=== PATIENT | male | born 1980 | race Caucasian/White ===

== ENCOUNTER 2019-07-08 13:44 | Emergency (ER) | payer SELFPAY ==
[2019-07-08 14:55] VITALS: BP 129/97; PULSE 78; RESP 16; TEMP 36.8; O2SAT 99; BMI 22.8
--- NOTE | 2019-07-08 15:02 | XR_ITS ---
WS: [id number] ELBOW LEFT TECHNIQUE: 3 views of the left elbow CLINICAL INFORMATION: fall COMPARISON: None. FINDINGS: Soft tissue edema. Moderate joint effusion. Nondisplaced fracture involving the radial head. Normal d istal humerus. XR/XR elbow LT min 3V* [id number] IMPRESSION: Nondisplaced radial head fracture with moderate joint effusion
--- NOTE | 2019-07-08 15:02 | XR_ITS ---
WS: [id number] SHOULDER LEFT TECHNIQUE: 3 views of the left shoulder CLINICAL INFORMATION: fall COMPARISON: None. FINDINGS: Normal acromioclavicular joint. Normal glenohumeral joint. Acromion is normal in appearance. Normal g lenoid. No evidence of acute fracture dislocation. XR/XR shoulder LT min 2V* [id number] IMPRESSION: Normal left shoulder.
--- NOTE | 2019-07-08 15:02 | XR_ITS ---
WS: [id number] LEFT HUMERUS: 1 VIEW(S) TECHNIQUE: Lateral view. HISTORY: trauma COMPARISON: None available. Lateral view of the humerus is submitted. No humerus fracture is identified. No displacement from the glenohumeral joint on this single view. No foreign bodies and visualized upper thorax is unremarkable. XR/[place] [id number] IMPRESSION: Negative single view LEFT humerus.
--- NOTE | 2019-07-08 15:02 | XRR_ITS ---
PROCEDURE INFORMATION: Exam: XR Left Wrist Exam date and time: 07/08/2019 3:50 PM Age: 39 years old Clinical indication: Injury or trauma; Initial encounter; Blunt trauma (contusions or hematomas; Wrist; Left; Injury date: 07/08/19; Injury details: Fall from ladder TECHNIQUE: Imaging protocol: XR Left wrist. Views: 3 or more views. COMPARISON: CR Hand 3 views, LEFT* [id number] 01/01/2016 12:51 PM FINDINGS: Bones/joints: The bone density is appropriate. No periosteal reaction. No osteomyelitis. No acute fracture or dislocation. No bony destructive changes. Soft tissues: No foreign body. No gas in the soft tissues. XR/XR wrist LT min 3V* [id number] IMPRESSION: No acute bony abnormality.
--- NOTE | 2019-07-08 15:02 | XR_ITS ---
WS: [id number] FOREARM LEFT TECHNIQUE: 2 views of the left forearm CLINICAL INFORMATION: fall COMPARISON: None. FINDINGS: No evidence of radial head dislocation. The radius and ulna appear normal. No visualized forearm frac tures. Normal radiocarpal joint. XR/XR forearm LT 2V [id number] IMPRESSION: Normal left forearm.
--- NOTE | 2019-07-08 15:04 | W.ED.EXTPRO ---
HPI - Extremity Problem General: Chief complaint: Extremity Injury, Upper Stated complaint: L arm pain Time Seen by Provider: 07/08/19 15:03 Source: patient Mode of arrival: ambulatory Limitations: no limitations History of Present Illness: HPI Narrative: Patient is a 39-year-old male who presents to ED today with complaints of left upper extremity pain; patient states he fell from a 10 foot ladder and when he fell he went to extend his arm to catch himself and had pain; he complains of pain to his mid upper arm all the way down to his wrist; denies numbness, tingling, loss of sensation, temperature or color changes MD Complaint: extremity pain and joint paint Onset (ago): hour(s) Pain Consistency: constant Location: left Radiation: proximal and distal Relieving factors: immobilization Exacerbating factors: range of motion Associated symptoms: Reports no associated symptoms; Deny chest pain Review of Systems Card: Denies: chest pain Resp: Denies: shortness of breath Musc: Reports: extremity pain, joint pain and limited range of motion; Denies: neck pain, back pain, extremity swelling, redness or joint warmth PFSH ED PFSH: Statuses (acute, chronic, etc) shown below reflect problem list status as previously entered and may not be historically accurate Social History Smoking and tobacco status: current every day smoker Physical Exam Const: COMMON NORMALS: no apparent distress, average body habitus, oriented x3, healthy appearing, alert and well nourished Neck/C-Spine: CERVICAL SPINE: Yes cervical ROM normal and No cervical spine tenderness Chest: COMMONS NORMALS: inspection of chest normal and palpation of chest normal Resp: COMMON NORMALS: normal respiratory effort and clear to auscultation bilaterally AUSCULTATION: clear to auscultation bilaterally Cardio: COMMON NORMALS: regular rate and regular rhythm RATE: regular rate RHYTHM: regular rhythm Back/Pelvis: COMMON NORMALS: thoracic and lumbar spine normal to inspection Extremity: LEFT UPPER EXTREMITY: No shoulder joint, Yes elbow joint (TTP; dec ROM; NV intact), Yes lower arm (mild TTP) and Yes wrist (mild TTP; full ROM) Neuro: COMMON NORMALS: oriented x3 SENSORIUM/ORIENTATION: Yes alert Course Vital Signs: Vital signs: Vital Signs Temperature 98.2 F 07/08/19 14:55 Pulse Rate 77 07/08/19 16:37 Respiratory Rate 20 H 07/08/19 16:37 Blood Pressure 141/95 07/08/19 16:37 Pulse Oximetry 98 07/08/19 16:37 MDM - Extremity (Nontraumatic) MDM Narrative: Medical decision making narrative: will splint/sling and follow up placed with CM for orthopedics Imaging Data^: L humerus: Radiologist's impression: [place] [address] XRay Report Signed Patient: Bonifacio Sargent Unit #: [id number] : 1980 Age/Sex: 39 / M ADM Date: 07/08/19 Loc: ER Room/Bed: Attending Dr: Ordering Provider/Ordering MD: Kassi Snow Date of Service: 07/08/19 Procedure(s): [place] [address] Accession Number(s): [id number] Report Number: [id number] WS: [id number] LEFT HUMERUS: 1 VIEW(S) TECHNIQUE: Lateral view. HISTORY: trauma COMPARISON: None available. Lateral view of the humerus is submitted. No humerus fracture is identified. No displacement from the glenohumeral joint on this single view. No foreign bodies and visualized upper thorax is unremarkable. XR/[place] [id number] IMPRESSION: Negative single view LEFT humerus. Dictated By: Rosita Veliz DO Signed By: Rosita Veliz DO Signed Date/Time: 07/08/19 1546 DD/ 1545 L shoulder : Radiologist's impression: [place] [address] XRay Report Signed Patient: Bonifacio Sargent Unit #: [id number] : 1980 Age/Sex: 39 / M ADM Date: 07/08/19 Loc: ER Room/Bed: Attending Dr: Ordering Provider/Ordering MD: Kassi Snow Date of Service: 07/08/19 Procedure(s): XR shoulder LT min 2V* [id number] Accession Number(s): [id number] Report Number: [id number] WS: [id number] SHOULDER LEFT TECHNIQUE: 3 views of the left shoulder CLINICAL INFORMATION: fall COMPARISON: None. FINDINGS: Normal acromioclavicular joint. Normal glenohumeral joint. Acromion is normal in appearance. Normal glenoid. No evidence of acute fracture dislocation. XR/XR shoulder LT min 2V* [id number] IMPRESSION: Normal left shoulder. Dictated By: Dennis Claudio MD Signed By: Dennis Claudio MD Signed Date/Time: 07/08/19 1535 DD/ 1534 L elbow: Radiologist's impression: [place] [id number] XRay Report Signed Patient: Bonifacio Sargent Unit #: [id number] : 1980 Age/Sex: 39 / M ADM Date: 07/08/19 Loc: ER Room/Bed: Attending Dr: Ordering Provider/Ordering MD: Kassi Snow Date of Service: 07/08/19 Procedure(s): XR elbow LT min 3V* 05672 Accession Number(s): [id number] Report Number: [id number] WS: [id number] ELBOW LEFT TECHNIQUE: 3 views of the left elbow CLINICAL INFORMATION: fall COMPARISON: None. FINDINGS: Soft tissue edema. Moderate joint effusion. Nondisplaced fracture involving the radial head. Normal distal humerus. XR/XR elbow LT min 3V* [id number] IMPRESSION: Nondisplaced radial head fracture with moderate joint effusion Dictated By: Dennis Claudio MD Signed By: Dennis Claudio MD Signed Date/Time: 07/08/19 1533 DD/ 1531 L forearm: Radiologist's impression: [place] [id number] XRay Report Signed Patient: Bonifacio Sargent Unit #: [id number] : 1980 Age/Sex: 39 / M ADM Date: 07/08/19 Loc: ER Room/Bed: Attending Dr: Ordering Provider/Ordering MD: Kassi Snow Date of Service: 07/08/19 Procedure(s): XR forearm LT 2V 02461 Accession Number(s): [id number] Report Number: [id number] WS: [id number] FOREARM LEFT TECHNIQUE: 2 views of the left forearm CLINICAL INFORMATION: fall COMPARISON: None. FINDINGS: No evidence of radial head dislocation. The radius and ulna appear normal. No visualized forearm fractures. Normal radiocarpal joint. XR/XR forearm LT 2V [id number] IMPRESSION: Normal left forearm. Dictated By: Dennis Claudio MD Signed By: Dennis Claudio MD Signed Date/Time: 07/08/19 152 DD/ 22 Discharge Plan Discharge Patient Disposition: Home, Self-Care Clinical Impression: Closed fracture of radial head Qualifiers: Encounter type: initial encounter Fracture alignment: nondisplaced Laterality: left Qualified Code(s): S52.125A - Nondisplaced fracture of head of left radius, initial encounter for closed fracture Condition: Stable Prescriptions: New hydrocodone-acetaminophen 5-325 mg tablet 1 tab PO Q6H PRN (Reason: pain) Qty: 20 RF: 0 Discharge Orders: Discharge Order (Routine); Ordered 07/08/19 Ordered By: Kassi Snow Discharge Diet: Usual diet Discharge Activity: splint/sling until told otherwise by orthopedics Patient Instructions: Elbow Fracture in Adults (ED) Activity Restrictions/Additional Instructions: As discussed case management will contact you tomorrow and give you your appointment date and time to follow-up with orthopedics. Discharge Date/Time: 07/08/19 16:38 Coding Level of Care Code ED Coroner Technician for Chg Fwd Exam Problem Focused
[2019-07-08 16:37] VITALS: BP 141/95; PULSE 77; RESP 20; O2SAT 98
--- NOTE | 2019-07-09 10:24 | DCPLANNER ---
rental manager had message to schedule a follow up appointment for patient with ortho. rental manager called the ortho clinic, spoke with Pat, gave clinic patients information. rental manager was told that patients information would be printed and reviewed. Clinic will call binder caser and patient with appointment information.
--- NOTE | 2019-07-15 12:52 | DCPLANNER ---
Patient had follow up appointment scheduled for 07.09.[address] Sterling at ortho. Patient did attend the appointment.
== END 2019-07-08 16:38 | disposition home or self-care (01) ==
PROVIDERS: Emergency Provider Emergency Medicine
DX: S52.125A Nondisplaced fracture of head of left radius, initial encounter for closed fracture (principal); W11.XXXA Fall on and from ladder, initial encounter; F17.210 Nicotine dependence, cigarettes, uncomplicated
CPT/HCPCS: 73030; 73060; 73080; 73090; 73110; 99281; 99283

== ENCOUNTER 2019-07-09 15:30 | Outpatient (CLI) | payer SELFPAY | END 2019-07-09 15:31 | disposition home or self-care (01) | LOC: SPT 15:30 | PROVIDERS: PCP Specialist; Visit Provider Specialist | DX: S52.122D Displaced fracture of head of left radius, subsequent encounter for closed fracture with routine healing (principal); X58.XXXD Exposure to other specified factors, subsequent encounter | CPT/HCPCS: L3761 ==

== ENCOUNTER → 2019-07-23 13:33 | Outpatient (BNVA) | payer SELFPAY | PROVIDERS: PCP Specialist; Visit Provider Specialist | DX: S52.122A Displaced fracture of head of left radius, initial encounter for closed fracture (principal); S40.022A Contusion of left upper arm, initial encounter; X58.XXXA Exposure to other specified factors, initial encounter | CPT/HCPCS: 73080 ==

== ENCOUNTER → 2019-08-06 09:16 | Outpatient (BNVA) | payer SELFPAY | PROVIDERS: PCP Specialist; Visit Provider Specialist | DX: S52.182A Other fracture of upper end of left radius, initial encounter for closed fracture (principal); X58.XXXA Exposure to other specified factors, initial encounter | CPT/HCPCS: 73080 ==

== ENCOUNTER → 2020-07-20 08:25 | Outpatient (BNVA) | payer OTHER, SELFPAY | PROVIDERS: PCP Specialist; Referring Provider Chiropractor; Visit Provider Orthopaedic Surgery | DX: M48.062 Spinal stenosis, lumbar region with neurogenic claudication (principal) | CPT/HCPCS: 72114 ==

== ENCOUNTER 2020-08-05 07:00 | Outpatient (CLI) | payer OTHER, SELFPAY ==
--- NOTE | 2020-08-05 07:15 | MR_ITS ---
WS: [id number] MRI LUMBAR SPINE NONCONTRAST TECHNIQUE: Sagittal T1, T2 and STIR imaging. Axial T1 and T2 imaging. CLINICAL INFORMATION: M54.9 - Dorsalgia, unspecified COMPARISON: None. FINDINGS: Mild lumbar curve. No acute compression. Mild disc bulging L4-L5 and L5-S1. Tiny annular fissure L4-5 . Small disc protrusions at C5-C6 and C6-C7 with mild central canal stenosis and slight contact of th e cervical cord. L1-L2: No significant disc bulging. Mild facet arthropathy. Spinal canal and foramen are patent. L2-L3: No significant disc bulging. Mild facet arthropathy. Spinal canal and foramen are patent. L3-L4: Mild annular bulging. Tiny central protrusion. Mild right and no significant left foraminal na rrowing. Spinal canal is patent. L4-L5: Mild annular bulging with a tiny central protrusion with annular fissure. Slight effacement of ventral thecal sac. Mild right and no significant left foraminal narrowing. Mild facet arthropathy. L5-S1: Shallow right pericentral disc protrusion impinges the traversing right S1 nerve root in the s ubarticular recess. Correlation for right S1 nerve root symptoms. Moderate right and mild left forami nal narrowing. Mild facet arthropathy. Small bilateral renal cysts partially visualized. Visualized pelvic bony structures: Normal. Paravertebral soft tissues: Normal. MR/MR lumbar spine wo con* [id number] IMPRESSION: 1. Mild lumbar curve. No acute compression. No high-grade central canal stenos is. 2. Right pericentral protrusion L5-S1 impinges the traversing right S1 nerve r oot in the subarticular recess. Correlation for right S1 nerve root symptoms. 3. Moderate right L5-S1 foraminal narrowing. 4. Tiny shallow central protrusion L4-5 with a tiny annular fissure. 5. Mild facet arthropathy L4-5 and L5-S1. 6. Small central disc protrusions in the cervical spine on the forensic nurse imaging a t C5-C6 and C6-C7. Mild central canal stenosis.
== END 2020-08-05 07:01 | disposition home or self-care (01) ==
LOC: RADSHAW 07:01
PROVIDERS: Visit Provider Orthopaedic Surgery
DX: M50.222 Other cervical disc displacement at C5-C6 level (principal); M47.816 Spondylosis without myelopathy or radiculopathy, lumbar region; M47.817 Spondylosis without myelopathy or radiculopathy, lumbosacral region; M51.26 Other intervertebral disc displacement, lumbar region; M51.27 Other intervertebral disc displacement, lumbosacral region
CPT/HCPCS: 72148

== ENCOUNTER → 2020-08-19 15:24 | Outpatient (BNVA) | payer OTHER, SELFPAY | PROVIDERS: Visit Provider Orthopaedic Surgery | DX: Z01.812 Encounter for preprocedural laboratory examination (principal); M48.062 Spinal stenosis, lumbar region with neurogenic claudication | CPT/HCPCS: 87635 ==

== ENCOUNTER 2020-08-25 05:47 | Day surgery (SDC) | payer SELFPAY ==
[2020-08-24 12:43] VITALS: BMI 22.1
[2020-08-25] VITALS (9 sets, daily range): BP systolic 103–137; BP diastolic 59–91; PULSE 69–85; RESP 15–19; TEMP 36.2–37.1; O2SAT 93–99
--- NOTE | 2020-08-25 | SCC_ITS ---
Procedure Done: L5/S1 Laminectomy with partial facetectomy and diskectomy 12.9 seconds of fluoroscopic guidance, for a cumulative dose of 2.71 mGy, was provided to Dr. Edouard by the radiology department. C-arm images of the lumbar spine were saved for the patient's permanent record. [facility]
--- NOTE | 2020-08-25 | XR_ITS ---
WS: [id number] Lumbar spine, C-arm fluoroscopy AP and lateral views, 08/25/2020 Clinical Data: L5/ S1 Laminectomy Comparison: Lumbar spine, 07/20/2020. Findings: An L5-S1 laminectomy was performed. XR/XR lumbar spine 2-3V* [id number] Impression: L5-S1 laminectomy.
--- NOTE | 2020-08-25 06:28 | ANES.PREANE2 ---
Pre-Anesthetic Assessment Pre-Anesthetic Assessment: Height/Weight: Height 1.75 m Weight 68.039 kg Temp Pulse Resp BP Pulse Ox 97.2 F L 69 18 137/91 99 08/25/20 06:23 08/25/20 06:23 08/25/20 06:23 08/25/20 06:23 08/25/20 06:23 Preop Diagnosis: lumbar stenosis Proposed Procedure: Operation Date: 08/25/20 07:00 Proposed Procedures p L5 /S1 laminectomy with bilateral decompression diskectomy 33323 M48.061(Not Applicable) - Irving Edouard DO Familial anesthetic complications: None Was Beta Eleni taken within 24 hours: N/A Last intake: Intake Last Liquid Date 08/24/20 Last Liquid Time 20:00 Last Solid Date 08/24/20 Last Solid Time 20:00 Social: Social History: Tobacco and No alcohol Exam: Pre-Anes Outpt Exam: alert, oriented x 3, clear to auscultation bilaterally and regular rate & rhythm Airway: Cervical ROM: WNL MP: 3 Dentition: Full Pulmonary: Pulmonary: Asthma (childhood) Musc/skel: Musc/skel: Lower Back Pain Anesthetic Plan: ASA status: 1 Anesthesia: General Risk of > 500 ml blood loss (7ml/kg in children): No PFSH Anesthesia PFSH: Social History Smoking and tobacco status: current every day smoker cigarettes Packs smoked per day: 1 Alcohol intake: current Alcohol intake frequency: few times a month Data Anesthesia Cardiac Studies: No Data to Display
[2020-08-25] MEDS: sodium chloride 0.9% 1,000 ML 30 ML IV (06:40)
--- NOTE | 2020-08-25 06:47 | W.PM.OPSUD ---
Surgery/Procedure H&P Update DATE OF PROCEDURE: August 25, 2020 DATE H&P PERFORMED: 08/25/20 PREOP DIAGNOSIS: lumbar stenosis PLANNED PROCEDURE: Operation Date: 08/25/20 07:00 Proposed Procedures p L5 /S1 laminectomy with bilateral decompression diskectomy 80390 M48.061(Not Applicable) - Irving Edouard DO
--- NOTE | 2020-08-25 06:48 | W.PM.OPSUD ---
Surgery/Procedure H&P Update DATE OF PROCEDURE: August 25, 2020 DATE H&P PERFORMED: 08/25/20 H&P UPDATE INFORMATION: I have reviewed H&P completed within last 30 days and I have examined patient prior to procedure PREOP DIAGNOSIS: lumbar stenosis PLANNED PROCEDURE: Operation Date: 08/25/20 07:00 Proposed Procedures p L5 /S1 laminectomy with bilateral decompression diskectomy 87159 M48.061(Not Applicable) - Irving Edouard DO
--- NOTE | 2020-08-25 06:48 | PM.HP ---
Providers/Chief Complaint Chief Complaint: L5 /S1 laminectomy with bilateral decompression di History of Present Illness Bonifacio 40 year old male her for evaluation of low back that started approximately one month ago with no known injury. He states the pain has made it difficult to work. Chief Complaint:low back pain Onset: 1 month Duration: month Characteristics: throbbing, numbness Severity: 03/04 Location: low back Radiating symptoms: numbness and pain to foot, back of leg Aggravating factors: walking, steps Alleviating factors: aleve Neuro deficits: denies incontinence of bowel/bladder, saddle anesthesia. Prior tx: chiropractor, acupuncture, Review of Systems Narrative: Const: Denies: fever(s) or chills Card: Denies: chest pain or dyspnea on exertion Resp: Denies: dyspnea or productive cough GI: Denies: abdominal pain, nausea or vomiting Musc: Reports: back pain and extremity pain Skin/Breast: Denies: changes in skin color or dry skin Neuro: Reports: numbness in extremities; Denies: weakness in extremities Psych: Denies: anxiety Asif/Lymph: Denies: easy bruising or easy bleeding Musc: Denies: joint warmth Medications/Allergies Home Medications Medication Instructions Recorded Confirmed Last Taken Type No Known Home Medications 08/24/20 08/24/20 Unknown History Allergies Allergy/AdvReac Type Severity Reaction Status Date / Time No Known Allergies Allergy Verified 08/24/20 12:39 PFSH Acute PFSH: Social History Smoking and tobacco status: current every day smoker cigarettes Packs smoked per day: 1 Alcohol intake: current Alcohol intake frequency: few times a month Vitals/I&O/Wt Last Vital Signs Temp 97.2 F L 08/25/20 06:23 Pulse 69 08/25/20 06:23 Resp 18 08/25/20 06:23 BP 137/91 08/25/20 06:23 Pulse Ox 99 08/25/20 06:23 Weight last 48 hrs Weight 150 lb Physical Exam Narrative: EXAM NARRATIVE: EXAM NARRATIVE: CONSTITUTIONAL: The patient is normal appearing, well groomed, cooperative and in no apparent distress. GENERAL: Patient in no acute distress. Well nourished. CARDIAC: Regular rate and rhythm. CHEST: Normal inspirator effort, normal respiratory rate. ABDOMEN: Soft and non-tender. SKIN: Clear, warm and intact. NEURO?PSYCH: The patient is alert and oriented to person, place and time. NEUROVASCULAR: Upper Extremity Sensory - SILT. Motor Strength: Shoulder abduction C5: 5/5; Wrist extension C6: 5/5; Elbow extension C7: 5/5; Hand Poker Machine Attendant C8: 5/5; Finger abduction T1: 5/5. Radial/ Ulnar/ Median in intact Lower Extremity Sensory - SILT. Motor Strength: Hip flexion L2/3; Ant/inner thigh: 5/5; Hip adduction L2/3: 5/5; Knee extension L4 Lat thigh: 5/5; Toe dorsiflexion L5: 5/5; Ankle dorsiflexion L5/ S1: 5/5; Plantar flexion S1: 5/5. DTR: Triceps 2+; Brachioradialis 2+; Patellar 2+; Achilles 2+. MUSCULOSKELETAL: UPPER EXTREMITIES: The patient had full active ROM in fingers, wrist, elbow, and shoulder. The patient demonstrated ability to fully flex/extend/abduct/adduct fingers, make ok sign, cross 2nd/3rd digits, extend 1st digit fully.. Radial pulse 2+, CR<2 seconds. LOWER EXTREMITIES: Pt has full, active ROM of toes, ankle, knee, and hip. Dorsalis pedis & posterior tibialis pulses 2+, CR<2 seconds. SPINE: Skin warm, dry, intact. A&P Assessment and plan (1) Lumbar stenosis with neurogenic claudication: MIS decompression of L5/S1 Status: Acute Attestations Medical Necessity Statement*: failed conservative tx Coding Level of Care Code Acute Seasoning Mixer for [facility] Fwd Diagnoses Lumbar stenosis with neurogenic claudication M48.062
--- NOTE | 2020-08-25 08:34 | P.OP_ITS ---
Operative Report Date of procedure: August 25, 2020 Pre-op Diagnosis: lumbar stenosis Post-op diagnosis: same Procedure Done: L5/S1 Laminectomy with partial facetectomy and diskectomy Anesthesia: General Estimated blood loss (mL): 5 Condition: stable Disposition: PACU Procedure: L5/S1 Laminectomy with partial facetectomy and diskectomy Patient is brought to the operative suite. After undergoing anesthesia they are placed in the supine position. All areas of impingement are well padded. Stefanie ent is then prepped and draped in the normal sterile fashion. A skin incision is made over the lateral level. This is confirmed under c-arm guidance. A series of dilators are passed and the tubular retractor is docked on the L5 lamina. A bovie is used to clear the soft tissue off the lamina and the L 5/S1 facet joint. A high speed dick is then used to perform the laminectomy and take down the medial aspect of the L 5/S1 facet joint. A kerrison rongeure was then used to take down the remaining lamina and smooth the edge of the laminectomy up to the point where the ligamentum flavum attaches. Attention was then brought to the medial aspect of the facet joint. The remaining medial aspect of the superior and inferior aspect of the facet joint were taken down with the kerrison from the pedicle of L5 to S1. The facet joint had significant hypertrophy. Attention was then brought to the Ligamentum Flavum. The ligament was taken down from the lamina of L5 to S1 and out medially to the remaining facet joint. The ligament was thick. The dura was then exposed. The dura was in good repair. The S1 nerve was then traced with a curette out the L5/S1 foramen and found to be adequately decompressed. The S1 nerve was traced with a curette around the LS1 pedicle. The lateral recess was opened with a kerrison helping to further decompress the S nerve. Nerve retractor was then placed. The S1 nerve was retracted medially. Bipolar was brought in and coagulated the bleeding veins around the disc space. 11 blade was used to cut the annulus. And discectomies were performed with small curette and micropituitary. Small amount of disc material was removed. And then the annulus and bulging disc was taken down in piecemeal. Wound was then irrigated all free disc pieces were removed. Wound is then irrigated copiously with saline and surgiflo is used to stop any bleeding. The tubular retractor is removed and the wound is closed with vicryl and monocryl suture. Glue is then used to protect the wound. A sterile dressing is then placed. Patient was then placed in the supine position and transferred to the PACU in stable condition.
--- NOTE | 2020-08-25 08:45 | SUR.PHASEI ---
0844- ORAL AIRWAY OUT, SAT 97% WITH ROOM AIR
--- NOTE | 2020-08-25 16:00 | ANE.PACU2 ---
Inpatient post-anesthesia follow up: Airway intact: Yes Vital signs: Temperature 98.7 F Pulse Rate 85 Respiratory Rate 18 Blood Pressure 132/77 Pulse Oximetry 98 Oxygen Delivery Me thod Room Air Oxygen Flow Rate 6 Fraction of Inspir ed Oxygen Hydration adequate: Yes Nausea and vomiting: No Pain level: 1 Mental status: Baseline
== END 2020-08-25 09:57 | disposition home or self-care (01) ==
PROVIDERS: Visit Provider Orthopaedic Surgery
PROC: (CPT 63005; principal; 2020-08-25 07:00)
DX: M48.062 Spinal stenosis, lumbar region with neurogenic claudication (principal); F17.210 Nicotine dependence, cigarettes, uncomplicated
CPT/HCPCS: 63047; 72100; 76000; J0690; J1100; J2250; J2405; J2704; J2710; J3010; J3490; J7030